=== PATIENT | female | born 1950 | race African-American/Black ===

== ENCOUNTER 2016-05-27 19:19 | Emergency (ER) | payer BC ==
[2016-05-27 20:09] VITALS: BP 142/69
[2016-05-27] MEDS ORDERED: Amoxicillin/Clavulanate TAB* 875 MG PO ONE (20:53)
--- NOTE | 2016-05-27 21:01 | UC ---
Throat Pain/Nasal Orion HPI - HPI Summary HPI Summary: ST FEVER BODYACHES SINCE YESTERDAY. - History of Current Complaint Chief Complaint: UCRespiratory Stated Complaint: SORE THROAT Time Seen by Provider: 05/27/16 20:15 Hx Obtained From: Patient Onset/Duration: Gradual Onset, Lasting Days, Still Present Severity: Moderate Cough: Nonproductive Associated Signs & Symptoms: Positive: Dysphagia, Hoarseness, Fever - Epiglottits Risk Factors Epiglottis Risk Factors: Negative - Allergies/Home Medications Allergies/Adverse Reactions: Allergies Allergy/AdvReac Type Severity Reaction Status Date / Time No Known Allergies Allergy Verified 05/27/16 20:09 PMH/Surg Hx/FS Hx/Imm Hx Previously Healthy: Yes Endocrine History Of: Denies: Thyroid Disease, Hyperthyroidism, Hypothyroidism Cardiovascular History Of: Reports: Hypertension Respiratory History Of: Denies: Asthma Neurological History Of: Denies: TIA, Seizures Psychological History Of: Denies: Anxiety - Surgical History Surgical History: Yes Surgery Procedure, Year, and Place: Spinal fusion, rotator cuff repair, bilateral foot bunionectomy, choley, R TKR, Hyster, Lap band - Family History Known Family History: Positive: None Negative: Respiratory Disease - Social History Occupation: Employed Full-time Lives: With Family Alcohol Use: Rare Substance Use Type: None Smoking Status (MU): Never Smoked Tobacco - Immunization History Most Recent Influenza Vaccination: fall 2014 Most Recent Tetanus Shot: >10 years Most Recent Pneumonia Vaccination: 2013 Review of Systems Constitutional: Fever, Fatigue Skin: Negative ENT: Sore Throat, Ear Ache Respiratory: Negative Cardiovascular: Negative Gastrointestinal: Negative Genitourinary: Negative Motor: Negative Neurovascular: Negative Musculoskeletal: Negative Neurological: Negative Psychological: Negative All Other Systems Reviewed And Are Negative: Yes Physical Exam Triage Information Reviewed: Yes Appearance: No Pain Distress, Well-Nourished, Ill-Appearing - MILD Vital Signs: Initial Vital Signs Temp 99.7 F 05/27/16 20:05 Pulse 93 05/27/16 20:05 Resp 12 05/27/16 20:05 BP 142/69 05/27/16 20:05 Pulse Ox 100 05/27/16 20:05 Vital Signs Reviewed: Yes Eye Exam: Normal ENT: Positive: Pharyngeal erythema, TMs normal, TM bulging Dental Exam: Normal Neck exam: Normal Neck: Positive: Supple, Nontender Respiratory Exam: Normal Respiratory: Positive: Chest non-tender, Lungs clear, Normal breath sounds, No respiratory distress, No accessory muscle use Cardiovascular Exam: Normal Cardiovascular: Positive: RRR, No Murmur, Pulses Normal, Brisk Capillary Refill Abdominal Exam: Normal Abdomen Description: Positive: Nontender, No Organomegaly Musculoskeletal Exam: Normal Musculoskeletal: Positive: Strength Intact, ROM Intact Neurological Exam: Normal Psychological Exam: Normal Skin Exam: Normal Throat Pain/Nasal Course/Dx - Differential Dx/Diagnosis Differential Diagnosis/HQI/PQRI: Pharyngitis, Sinusitis, Tonsillitis, URI Provider Diagnoses: STREP TONSILLITIS Discharge - Discharge Plan Condition: Stable Disposition: HOME Prescriptions: Amoxicillin/Clavulanate TAB* [Augmentin TAB 875*] 875 mg PO BID #20 tab Patient Education Materials: Strep Throat (ED) Referrals: Robert Shah MD [Primary Care Provider] -
== END 2016-05-27 21:10 | disposition home or self-care (01) ==
LOC: UCEAST 19:19
DX: J03.00 Acute streptococcal tonsillitis, unspecified (principal)
CPT/HCPCS: 87502; 87651; 99212; A9270-GY; G0463

== ENCOUNTER 2017-12-09 09:51 | Day surgery (SDC) | payer BC ==
--- NOTE | 2017-11-23 17:00 | HP ---
PREOPERATIVE HISTORY AND PHYSICAL: DATE OF ADMISSION/SURGERY: 12/09/17 DATE OF OFFICE VISIT: 11/16/17 ATTENDING SURGEON: Cresencio Hines MD * (DICTATED BY KIMI ALDANA) PROCEDURE: Right shoulder arthroscopic rotator cuff repair, decompression, excision of distal clavicle, evaluation and treatment of biceps and possible manipulation. CHIEF COMPLAINT: Right shoulder pain. 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 She presents for followup of her right shoulder pain, diagnosed as a high-grade partial-thickness undersurface tear of the supraspinatus, rotator cuff tendon. As a review, the patient developed pain in January of 2017 over 8 months ago without a specific trigger. She has nighttime pain, pain with activities including work. She failed conservative measures to include cortisone injection, Advil, and physical therapy and is therefore agreed to undergo a right shoulder arthroscopic rotator cuff repair, decompression, excision of distal clavicle and evaluation and treatment of biceps with possible manipulation with Dr. Hines on 12/09/17. PAST MEDICAL HISTORY: 1. Hypertension. 2. Osteoarthritis. 3. High cholesterol. PAST SURGICAL HISTORY: Right total knee replacement, spinal fusion, left rotator cuff repair in 2007, hysterectomy, left knee medial meniscus repair and bilateral bunion surgery with cholecystectomy. The patient denies prior complications with anesthesia. MEDICATIONS: 1. Naproxen 500 mg 1 by mouth twice a day as needed. 2. Lipitor 20 mg 1 by mouth every day. 3. Hydrochlorothiazide 25 mg 1 by mouth every morning. 4. Enalapril 20 mg 2 tabs every day. 5. Aspirin 81 mg 1 by mouth every day. 6. Multivitamin 1 by mouth every day. ALLERGIES: No known drug allergies. FAMILY HISTORY: Positive for her father with a OR, sister with rheumatic fever. Denies family history of DVT or PE. SOCIAL HISTORY: She lives alone. She works at the [employer]. She denies tobacco use. She drinks about 1 alcoholic beverage per month. She reports occasional exercise. She is right hand dominant. She denies illegal drug use. REVIEW OF SYSTEMS: A 14-point review of systems was reviewed with the patient. Positive for current complaint, otherwise negative. Denies chest pain, shortness of breath, fever, chills, history of bleeding disorder, history of DVT or PE, history of MRSA, history of hep C or HIV. PHYSICAL EXAMINATION VITAL SIGNS: Height 68, weight 260, blood pressure 158/80, respiratory rate 18 , temperature 96.6, BMI 39.5. HEENT: Normocephalic, atraumatic. PERRLA. Throat clear. NECK: Supple. PULMONARY: Lungs are clear to auscultation bilaterally. No wheezing, rhonchi, or rales. CARDIO: Regular rate and rhythm. S1, S2. No murmurs, gallops, or rubs. No edema. ABDOMEN: Positive bowel sounds. Soft, nontender. MUSCULOSKELETAL: Right shoulder skin is intact with no soft tissue swelling or bruising. Passive forward flexion to 120, external rotation to 70, internal rotation to 60. Pain and weakness to supraspinatus testing. Posterior pain with Speed and [place]. Tenderness to palpation over the AC joint in the proximal biceps tendon, +2 radial pulses. Sensation intact to light touch distally. NEURO: Alert and oriented x3. Cranial nerves grossly intact. Sensation intact to light touch distally. DIAGNOSTIC STUDIES: MRI of the right shoulder from 04/17/17 revealed a high- grade partial-thickness tear of the undersurface of the supraspinatus tendon and there is some tendinosis to the rotator cuff and calcification above the supraspinatus tendon. IMPRESSION: 1. Right shoulder high-grade partial-thickness undersurface tear of the supraspinatus and rotator cuff tendon. 2. Acromioclavicular joint arthritis. 3. Biceps tendinitis. PLAN: The patient is scheduled to undergo right shoulder arthroscopic rotator cuff repair, decompression, excision of distal clavicle and evaluation and treatment of biceps with possible manipulation with Dr. Hines on 12/09/17. Percocet will be used for postop pain management and then the patient will follow up 10 to 14 days postop for followup and suture removal. In regards to the biceps, the patient would prefer a biceps release. KIMI ALDANA [id number]/[facility] #: [id number] [facility]
[~2017-12-09 09:51] MED LIST: Buffered Lidocaine 0.9% SYRIN* 5 ML/SYR SYRINGE INTRADERM ONE; Lidocaine 2% PF * 5 ML VIAL ONE; Midazolam* 1 MG/ML 2 ML VIAL (2 MG) ONE; Propofol* 10 MG/ML 20 ML BTL IV PUSH ONE; Propofol* 500 MG/50 ML BTL ONE; ROPIVACAINE 5 MG/ML 30 ML BTL (0.5%) ONE; Rocuronium* 10 MG/ML VIAL ONE; fentaNYL* 50 MCG/ML 2 ML VIAL (100 MCG VIAL) ONE
[2017-12-09] MEDS ORDERED: ceFAZolin 2 GM PREMIX in ORs 2 GM/50 ML BAG IVPB ONE (09:53)
[2017-12-09] MEDS ORDERED: EPINEPHRINE 1 MG/ML 1 ML VIAL ONE (11:25)
[2017-12-09] MEDS ORDERED: Dexamethasone IV* 4 MG/ML 1 ML (4 MG) ONE (11:49)
[2017-12-09] MEDS ORDERED: ceFAZolin 1 GM VIAL(*) ONE (12:03)
[2017-12-09] MEDS ORDERED: Phenylephrine INJ* 10 MG/ML 1 ML VIAL (10 MG) ONE (12:07)
[2017-12-09] MEDS ORDERED: Naloxone* 0.4 MG/ML 1 ML VIAL IV PRN (12:44)
[2017-12-09] MEDS ORDERED: Acetaminophen TAB* 325 MG PO PRN (12:44)
[2017-12-09] MEDS ORDERED: Metoclopramide IV* 5 MG/ML 2 ML VIAL IV PRN (12:44)
[2017-12-09] MEDS ORDERED: HYDROmorphone INJ1* 1 MG/ML SYRINGE IV PRN (12:44)
[2017-12-09] MEDS ORDERED: Bupivacaine 0.25% W/EPI* 10 ML SDV ONE (12:55)
[2017-12-09] MEDS ORDERED: Ondansetron INJ* 2 MG/ML VIAL ONE (13:35)
[2017-12-09] MEDS ORDERED: Ketorolac INJ* 30 MG/ML 1 ML VIAL ONE (13:35)
[2017-12-09] MEDS ORDERED: Glycopyrrolate IV* 0.2 MG/ML 1 ML VIAL ONE (13:44)
[2017-12-09] MEDS ORDERED: Neostigmine Methylsulfate* 1 MG/ML 10 ML VIAL (1 mg/ml) ONE (13:44)
[2017-12-09] MEDS ORDERED: Acetaminophen TAB* 325 MG ONE (15:05)
[2017-12-09] MEDS ORDERED: HYDROmorphone INJ1* 1 MG/ML SYRINGE ONE (15:05)
[2017-12-09 16:26] VITALS: BP 144/74
--- NOTE | 2017-12-13 22:44 | OP ---
DATE OF OPERATION: 12/09/17 - [facility] DATE OF : 52 SURGEON: Cresencio Hines MD HAND SHAPER: KIMI Diaz. A physician assistant facility manager was required for the length of the procedure for assistance with positioning, retraction, instrumentation, and closure. ANESTHESIOLOGIST: Johana Pleitez DO. ANESTHESIA: General anesthesia, regional interscalene block anesthesia, local anesthesia about the biceps incision site with 10 cc of 0.25% Marcaine with epinephrine. PRE-OP DIAGNOSES: 1. Right shoulder high-grade partial thickness undersurface tear supraspinatus rotator cuff. 2. Right shoulder AC joint arthritis. 3. Right shoulder subacromial impingement. 4. Right shoulder biceps tendinitis or superior labral tear, possible. POST-OP DIAGNOSES: 1. Right shoulder high-grade partial thickness undersurface tear supraspinatus rotator cuff tendon. 2. Right shoulder very low-grade partial thickness tear undersurface subscapularis tendon rotator cuff. 3. Right shoulder AC joint arthritis. 4. Right shoulder subacromial impingement. 5. Right shoulder biceps tendinosis. OPERATIVE PROCEDURE: 1. Right shoulder arthroscopic rotator cuff repair, supraspinatus, double row. 2. Right shoulder debridement, undersurface subscapularis and release of biceps. 3. Right shoulder arthroscopic subacromial decompression. 4. Right shoulder arthroscopic distal clavicle resection. 5. Right shoulder open proximal biceps tenodesis, subpectoral. INDICATIONS FOR PROCEDURE: The patient is a 66-year-old woman, right-hand dominant, who had worked at the [employer] at [employer], who developed pain in January of 2017 without a specific trigger and has had severe day time and night time pain with activities refractory to a full spectrum of a nonoperative management. The patient has delayed her surgery for social reasons so that she could have the proper support network intact for postoperative recovery. Discussed risks and potential complications of procedure including bleeding, infection, nerve or blood vessel injury, shoulder pain, stiffness, osteoarthritis, rotator cuff re-tear. ANTIBIOTICS: 3 g Ancef IV. IV FLUIDS: 1500 cc crystalloid. [id number] TIME: 128 minutes. ARTHROSCOPIC FLUID UTILIZED: 12 bags each with 3 L for a total of 36 L. SPECIMENS: None. IMPLANTS: Mitek Healix 5.5 mm triple loaded suture anchor x1. Mitek Healix knotless 5.5 suture anchor x1. COMPLICATIONS: None. DESCRIPTION OF PROCEDURE: Preoperative consent was signed in preop holding. Operative extremity was marked in preoperative holding. The patient taken back to the operating room after having undergone a regional interscalene block. The patient was placed supine on the operating room table and sedated and intubated, placed in the lateral decubitus position with the right shoulder up. Lateral traction, 15 pounds. Appropriate abduction and forward flexion. Beanbag was hardened, axillary roll, all bony prominences padded. The right shoulder was prepped and draped. Surgical time-out performed. A spinal needle was used to inject 30 cc of normal saline into the posterior aspect of the glenohumeral joint. I then established a standard posterior glenohumeral joint portal. Commenced shoulder arthroscopy, diagnostic. No articular cartilage lesions. I noted some tendinosis at the proximal biceps tendon. I established anterior glenohumeral joint portal under direct visualization. I noted significant tendinosis of the subscapularis and perhaps a very low grade tearing. Using arthroscopic shaver to debride the undersurface of subscapularis. Most of the tendon was intact so no repair was required. The undersurface of the supraspinatus showed a very large tear, what I perceive to be full thickness. I cut the biceps tendon near its origin because of the biceps tendinosis. I then with an instrument moved to the subacromial space. I entered subacromial space from posterior and anterior. I established a lateral subacromial portal under direct visualization. Surprisingly, the tear was not full thickness. There was still a small very thin layer of tissue on the bursal side of the tendon. Probing quickly revealed how thin this was and I identified my nearly full thickness tear in the supraspinatus tendon. I debrided it back to stable tissue. I debrided the footprint appropriately. I then performed a subacromial decompression removing spurs from the anterior aspect of the acromion. I next placed a triple loaded suture anchor in the medial aspect of the footprint. I used a tate and nephew suture passer to place horizontal mattress stitches in the rotator cuff tendon. I passed all sutures and then tied them. For some additional fixation, I decided to place a lateral row anchor with sutures from the medial row. There is the tiniest of dog ears between the posterior most second and third strands of suture. Therefore, I used the extra suture from the lateral row anchor to place 1 additional simple stitch to bring that dog ear down to bone. I liked the stability of my repair to probing and movement. I next proceeded to the distal clavicle where I used an arthroscopic ran to debride 8 mm of the distal end of the distal clavicle. Instruments and fluid were removed from the subacromial space. I then closed the skin incisions with [id number] and 12 stitches using nylon 3-0 suture. Converted the patient to a supine position. I made a standard longitudinal skin incision over the anteromedial upper arm, centered just distal through the inferior aspect of the pectoralis major tendon. Dissected down to the bicipital groove. Retrieved the long head of the biceps tendon. Drilled the anterior cortex of the proximal humerus. Placed 3 stitches with FiberLoop suture in the long head biceps tendon. I placed my button into the bone and then flipped it, tied a stitch. Then placed another stitch and tied that. Removed excess suture and tendon. Irrigation. Closure of the subcutaneous tissue with buried simple stitches using Vicryl 3-0 suture. Closure of the skin with a running stitch layer of Monocryl 4-0 in the subcuticular layer. 4x4s and Tegaderm followed by Xeroform, 4x4s and foam tape to the arthroscopic incisions. I had placed some local anesthetic 10 cc in the subcutaneous tissue about the biceps tendon incision. The patient was placed in a sling with the abduction pillow and cooling unit. DISPOSITION: The patient was to receive Percocet as needed for pain control, aspirin b.i.d. for DVT prophylaxis and Keflex t.i.d. for infection prophylaxis. She will follow up with me in clinic 10 to 14 days postoperatively and she will start physical therapy immediately. [id number]/[facility] #: [id number] [place]
== END 2017-12-09 17:00 | disposition home or self-care (01) ==
LOC: OR 09:51
PROVIDERS: ATTEND Orthopaedic Surgery
DX: S46.011A Strain of muscle(s) and tendon(s) of the rotator cuff of right shoulder, initial encounter (principal); M19.011 Primary osteoarthritis, right shoulder; M75.41 Impingement syndrome of right shoulder; M75.21 Bicipital tendinitis, right shoulder; I10 Essential (primary) hypertension; E78.5 Hyperlipidemia, unspecified; K21.9 Gastro-esophageal reflux disease without esophagitis; G89.18 Other acute postprocedural pain
CPT/HCPCS: A9270-GY; C1776; J0690; J1100; J1170; J1885; J2250; J2405; J2704; J2710; J2795; J3010

== ENCOUNTER 2018-02-09 10:43 | Emergency (ER) | payer BC ==
--- OUTSIDE RECORDS SUMMARY | 2018-02-09 10:49 | XMS REPORT ---
:1950 External Reference #:[id number] Author Organization [employer] Address [address] [facility] [place] [address] Phone [phone] Care Team Providers Name Role Phone Papi Johnson III, MD Primary Care Physician Unavailable Payers Type Date Identification Numbers Payment Provider Subscriber Commercial Policy Number: [id number] [facility] Felicia Villanueva Group Name: [id number] [address] PayID: [id number] Problems Date Description Provider Status Onset: 09/07/2015 Essential hypertension Robert Shah M.D. Active Onset: 09/07/2015 Gastroesophageal reflux disease Robert Shah M.D. Active Onset: 09/07/2015 Hypertensive heart disease without Robert Shah M.D. Active heart failure Onset: 10/05/2015 Cardiovascular stress test abnormal Robert Shah M.D. Active Onset: 12/29/2016 Pure hypercholesterolemia Papi Johnson M.D. Active Family History Date Family Member(s) Problem(s) Comments General No Current Problems Father Coronary Artery Disease (CAD) from [place] 70 yo Mother dementia Social History Type Date Description Comments Marital Status Lives With Family Occupation Retired Occupation Retail Pharmacy Manager Cigarette Use Never Smoked Cigarettes ETOH Use Rarely consumes alcohol Smoking Patient has never smoked Recreational Drug Use Denies Drug Use Daily Caffeine Does Not Consume Caffeine Exercise Type/Frequency Exercises regularly Allergies, Adverse Reactions, Alerts Date Description Reaction Status Severity Comments 09/06/2015 NKDA active Medications Medication Date Status Form Strength Qnty SIG Indications Ordering Provider Enalapril Maleate 01/04 Active Tablets 20mg 180ta 2 by I10 Papi Montero /Zandra Johnson, delores Cervantes day Oxycodone-Acetaminoph 12/09 Active Tablets 5-325mg 30tab 1 tab by Cresencio s mouth F every 4 Donny, hours as MD needed for pain Keflex 12/09 Active Capsules 500mg 21cap 1 cap by s mouth F three Donny, times a MD day Naproxen DR 06/18 Active Tablets 500mg 60tab take [address] s tab by F mouth Donny, twice MD daily as needed Lipitor 09/30 Active Tablets 20mg 90tab Take 1 R94.39 Papi Montero s Tablet Elizabeth, By Mouth M.D. Every Day Hydrochlorothiazide 09/20 Active Tablets 25mg 90tab Take 1 I10 Papi Montero s Tablet Elizabeth, By Mouth M.D. Every Day In The Morning Aspirin Active Tablets 81mg 1 by R94.39 Unknown /0000 DR mouth every day Multi Vitamin Active Tablets 1 by Unknown /0000 mouth every day Aspirin 12/09 Hx Tablets 325mg 28tab 1 tab by s mouth F - twice a Donny, 01/04 day Amlodipine Besylate 09/30 Hx Tablets 10mg 90tab 1 by I11.9 Alvaro Diggs s mouth Nick, - every DO FACC I10 Enalapril 09/07/2015 - Hx Tablets 20mg 60tabs take 2 I10 Papi Montero Maleate 01/04/2018 tablets by Elizabeth, mouth every M.D. day Enalapril - Hx Tablets 20mg 1 by mouth I10 Unknown Maleate 09/07/2015 every day Levaquin - Hx Tablets 750mg 1 by mouth Unknown 08/06/2015 every day for seven days Zofran - Hx Tablets 4mg 1 tab by Unknown 08/06/2015 mouth every 6 hours as needed nausea Probiotic - Hx Capsules 1 by mouth Unknown 12/28/2016 every day Vitamin D High - Hx Capsules 1000Unit 1 by mouth Unknown Potency 12/28/2016 as needed Omeprazole - Hx Capsules DR 20mg 30caps Take 1 Jessi 12/28/2016 Capsule Chisholm, Every Day M.D. Medications Administered in Office Medication Date Status Form Strength Qnty SIG Indications Ordering Provider Depomedrol Administered Injection Cresencio F 40MG 018 MD Omid Hinesomedofelia Administered Injection Fidel Jones, 40MG 017 M.DLiam Technetium TC Administered Injection Anthony Levine 99M 016 Billy Coleman Tetrofosmin, Per Unit Dose Up To 40 Millicuries Technetium TC Administered Injection Debi 99M 016 Nick Armijo M.D. Per Unit Dose Up To 40 Millicuries Immunizations CPT Code Status Date Vaccine Lot # [id number] Given 01/04/2018 Pneumonia Vaccine [id number] Given 01/04/2018 Influenza Virus Vaccine, Quadrivalent, Split, [id number] Preservative Free [id number] Given 12/29/2016 Pneumococcal Conjugate Vaccine 13 Valent For [id number] Intramuscular Use 73516 Given 05/02/2016 Tdap - Tetanus/Diptheria/Acellular Pertussis [id number] Given 05/02/2016 Influenza Virus Vaccine, Quadrivalent, Split [id number] Virus, Im Use Vital Signs Date Vital Result Comment 01/19/2018 Heart Rate 64 /min BP Systolic 144 mmHg BP Diastolic 82 mmHg Respiratory Rate 16 /min Pain Level 7 01/04/2018 Height 68 inches 5'8" Weight 265.00 lb Heart Rate 85 /min BP Systolic 130 mmHg BP Diastolic 82 mmHg O2 % BldC Oximetry 98 % BMI (Body Mass Index) 40.3 kg/m2 12/21/2017 Height 68 inches 5'8" Heart Rate 64 /min Respiratory Rate 18 /min Body Temperature 96.4 F Pain Level 8 11/16/2017 Height 68 inches 5'8" Weight 260.00 lb BP Systolic 158 mmHg BP Diastolic 80 mmHg Respiratory Rate 18 /min Body Temperature 96.6 F Pain Level 5 BMI (Body Mass Index) 39.5 kg/m2 09/21/2017 Height 68 inches 5'8" Weight 260.00 lb Heart Rate 74 /min BP Systolic 160 mmHg BP Diastolic 82 mmHg Respiratory Rate 12 /min Pain Level 7 BMI (Body Mass Index) 39.5 kg/m2 06/18/2017 Height 68 inches 5'8" Weight 250.00 lb Heart Rate 82 /min Respiratory Rate 16 /min Pain Level 7 BMI (Body Mass Index) 38.0 kg/m2 04/20/2017 Height 68 inches 5'8" Weight 250.00 lb Heart Rate 89 /min Respiratory Rate 16 /min Body Temperature 97.1 F Pain Level 8 BMI (Body Mass Index) 38.0 kg/m2 04/14/2017 Height 68 inches 5'8" Weight 250.00 lb BP Systolic 139 mmHg BP Diastolic 81 mmHg Respiratory Rate 16 /min Pain Level 9 BMI (Body Mass Index) 38.0 kg/m2 12/29/2016 Height 68 inches 5'8" Weight 266.25 lb Heart Rate 91 /min BP Systolic Sitting 160 mmHg BP Diastolic Sitting 92 mmHg Body Temperature 97.2 F O2 % BldC Oximetry 98 % BMI (Body Mass Index) 40.5 kg/m2 11/03/2016 Height 68 inches 5'8" Weight 260.00 lb BP Systolic 134 mmHg BP Diastolic 78 mmHg Respiratory Rate 18 /min Body Temperature 97.2 F Pain Level 0 BMI (Body Mass Index) 39.5 kg/m2 09/15/2016 Height 68 inches 5'8" Weight 260.00 lb Heart Rate 76 /min BP Systolic 154 mmHg BP Diastolic 85 mmHg Body Temperature 96.5 F BMI (Body Mass Index) 39.5 kg/m2 05/02/2016 Heart Rate 76 /min BP Systolic Sitting 126 mmHg BP Diastolic Sitting 84 mmHg Respiratory Rate 15 /min Body Temperature 98.4 F O2 % BldC Oximetry 98 % 10/05/2015 Heart Rate 88 /min BP Systolic Sitting 124 mmHg BP Diastolic Sitting 80 mmHg Respiratory Rate 15 /min O2 % BldC Oximetry 98 % 10/01/2015 Height 68 inches 5'8" Weight 256.00 lb with shoes Heart Rate 96 /min BP Systolic Sitting 140 mmHg Ra lg cuff BP Diastolic Sitting 72 mmHg Ra lg cuff BP Systolic Standing 140 mmHg Ra lg cuff BP Diastolic Standing 74 mmHg Ra lg cuff BMI (Body Mass Index) 38.9 kg/m2 Ejection Fraction 55-60% date 08/24/15 ECHO 09/21/2015 Heart Rate 79 /min BP Systolic Sitting 166 mmHg BP Diastolic Sitting 84 mmHg O2 % BldC Oximetry 98 % 09/07/2015 Weight 256.00 lb Heart Rate 110 /min BP Systolic Sitting 140 mmHg BP Diastolic Sitting 77 mmHg Body Temperature 97.8 F O2 % BldC Oximetry 97 % 09/06/2015 Height 68 inches 5'8" Weight 256.00 lb w/o shoes Heart Rate 102 /min reg BP Systolic Sitting 160 mmHg Rue, reg cuff BP Diastolic Sitting 86 mmHg Rue, reg cuff BP Systolic Standing 166 mmHg Rue BP Diastolic Standing 78 mmHg Rue Respiratory Rate 16 /min BMI (Body Mass Index) 38.9 kg/m2 Ejection Fraction 55-60% as of 08/24/15 echo Results Test Date Test Result H/L Range Note CBC Auto Diff 01/14/2017 White Blood Count 4.4 10^3/uL 3.5-10.8 Red Blood Count 3.91 10^6/uL Low 4.0-5.4 Hemoglobin 12.3 g/dL 12.0-16.0 Hematocrit 37 % 35-47 Mean Corpuscular Volume 94 fL 80-97 Mean Corpuscular Hemoglobin 32 pg High 27-31 Mean Corpuscular HGB Conc 34 g/dL 31-36 Red Cell Distribution Width 13 % 10.5-15 Platelet Count 229 10^3/uL 150-450 Mean Platelet Volume 9 um3 7.4-10.4 Abs Neutrophils 1.8 10^3/uL 1.5-7.7 Abs Lymphocytes 2.0 10^3/uL 1.0-4.8 Abs Monocytes 0.5 10^3/uL 0-0.8 Abs Eosinophils 0.1 10^3/uL 0-0.6 Abs Basophils 0 10^3/uL 0-0.2 Abs Nucleated RBC 0 10^3/uL Granulocyte % 40.0 % 38-83 Lymphocyte % 46.7 % 25-47 Monocyte % 10.8 % High 1-9 Eosinophil % 1.4 % 0-6 Basophil % 1.1 % 0-2 Nucleated Red Blood Cells % 0.1 Comp Metabolic Panel 01/14/2017 Sodium 135 mmol/L 133-145 Potassium 3.9 mmol/L 3.5-5.0 Chloride 100 mmol/L Low 101-111 Co2 Carbon Dioxide 30 mmol/L 22-32 Anion Gap 5 mmol/L 2-11 Glucose 88 mg/dL 70-100 Blood Urea Nitrogen 15 mg/dL 6-24 Creatinine 0.87 mg/dL 0.51-0.95 BUN/Creatinine Ratio 17.2 8-20 Calcium 9.5 mg/dL 8.6-10.3 Total Protein 8.1 g/dL 6.4-8.9 Albumin 4.1 g/dL 3.2-5.2 Globulin 4.0 g/dL 2-4 Albumin/Globulin Ratio 1.0 1-3 Total Bilirubin 0.70 mg/dL 0.2-1.0 Alkaline Phosphatase 49 U/L 34-104 Alt 35 U/L 7-52 Ast 39 U/L 13-39 Egfr Non- 65.3 >60 Egfr 84.0 >60 1 Iron & Iron Binding Capacity 01/14/2017 Iron 72 g/dL 50-212 Unsaturated Iron Binding 314 g/dL Total Iron Binding Capacity 386 g/dL 250-450 % Iron Saturation 19 % 15-55 Laboratory test finding 01/14/2017 Vitamin D Total 25(Oh) 54.1 ng/mL High 20-50 Ferritin 49.3 ng/mL 11-307 Vitamin B12 613 pg/mL 180-914 2 Folic Acid (Folate) > 20.00 ng/mL >3.99 Vitamin B1 (Whole Blood) 101 nmol/L 70-180 3 Vitamin E Level 12.7 mg/L 5.5 - 17.0 4 Comp Metabolic Panel 12/29/2016 Sodium 139 mmol/L 133-145 Potassium 4.3 mmol/L 3.5-5.0 Chloride 103 mmol/L 101-111 Co2 Carbon Dioxide 30 mmol/L 22-32 Anion Gap 6 mmol/L 2-11 Glucose 107 mg/dL High 70-100 Blood Urea Nitrogen 14 mg/dL 6-24 Creatinine 0.82 mg/dL 0.51-0.95 BUN/Creatinine Ratio 17.1 8-20 Calcium 9.5 mg/dL 8.6-10.3 Total Protein 8.1 g/dL 6.4-8.9 Albumin 4.0 g/dL 3.2-5.2 Globulin 4.1 g/dL High 2-4 Albumin/Globulin Ratio 1.0 1-3 Total Bilirubin 0.90 mg/dL 0.2-1.0 Alkaline Phosphatase 49 U/L 34-104 Alt 31 U/L 7-52 Ast 31 U/L 13-39 Egfr Non- 70.0 >60 Egfr 90.0 >60 5 Lipid Profile (Trig/Chol/HDL) 12/29/2016 Triglycerides 48 mg/dL 6 Cholesterol 122 mg/dL 7 HDL Cholesterol 60.5 mg/dL 8 LDL Cholesterol 52 mg/dL 9 Laboratory test finding 12/29/2016 TSH (Thyroid Stim 2.06 mcIU/mL 0.34- 5.60 10 Horm) CBC Auto Diff 12/29/2016 White Blood Count 4.1 10^3/uL 3.5-10.8 Red Blood Count 4.19 10^6/uL 4.0-5.4 Hemoglobin 13.1 g/dL 12.0-16.0 Hematocrit 40 % 35-47 Mean Corpuscular Volume 95 fL 80-97 Mean Corpuscular Hemoglobin 31 pg 27-31 Mean Corpuscular HGB Conc 33 g/dL 31-36 Red Cell Distribution Width 14 % 10.5-15 Platelet Count 199 10^3/uL 150-450 Mean Platelet Volume 10 um3 7.4-10.4 Abs Neutrophils 1.4 10^3/uL Low 1.5-7.7 Abs Lymphocytes 1.9 10^3/uL 1.0-4.8 Abs Monocytes 0.7 10^3/uL 0-0.8 Abs Eosinophils 0.1 10^3/uL 0-0.6 Abs Basophils 0 10^3/uL 0-0.2 Abs Nucleated RBC 0 10^3/uL Granulocyte % 34.5 % Low 38-83 Lymphocyte % 46.8 % 25-47 Monocyte % 15.8 % High 1-9 Eosinophil % 1.7 % 0-6 Basophil % 1.2 % 0-2 Nucleated Red Blood Cells % 0 Laboratory test finding 05/27/2016 Rapid Strep Molecular POSITIVE Negative 11 Rapid Influenza A & B 05/27/2016 Influenza A Molecular NEGATIVE Negative 12 Molecular Influenza B Molecular NEGATIVE Negative Basic Metabolic Panel 09/14/2015 Sodium 140 mmol/L 133-145 Potassium 4.6 mmol/L 3.5-5.0 Chloride 106 mmol/L 101-111 Co2 Carbon Dioxide 28 mmol/L 22-32 Anion Gap 6 mmol/L 2-11 Glucose 98 mg/dL 70-100 Blood Urea Nitrogen 9 mg/dL 6-24 Creatinine 0.79 mg/dL 0.51-0.95 BUN/Creatinine Ratio 11.4 8-20 Calcium 9.3 mg/dL 8.6-10.3 Egfr Non- 73.5 >60 Egfr 94.5 >60 13 1 Because ethnic data is not always readily available, this report includes an eGFR for both -Americans and non- Americans. The National Kidney Disease Education Program (NKDEP) does not endorse the use of the MDRD equation for patients that are not between the ages of 18 and 70, are , have extremes of body size, muscle mass, or nutritional status, or are non- or non-. According to the National Kidney Foundation, irrespective of diagnosis, the stage of the disease is based on the level of kidney function: Stage Description GFR(mL/min/1.73 m(2)) 1 Kidney damage with normal or decreased GFR 90 2 Kidney damage with mild decrease in GFR 60-89 3 Moderate decrease in GFR 30-59 4 Severe decrease in GFR 15-29 5 Kidney failure <15 (or dialysis) 2 Normal Range 180 to 914 Indeterminate Range 145 to 180 Deficient Range <145 3 ADDITIONAL INFORMATION This test was developed and its performance characteristics determined by [facility] in a manner consistent with CLIA requirements. This test has not been cleared or approved by the U.S. Food and Drug Administration. Test Performed by: [facility] [place] [address] 4 ADDITIONAL INFORMATION This test was developed and its performance characteristics determined by [facility] in a manner consistent with CLIA requirements. This test has not been cleared or approved by the U.S. Food and Drug Administration. Test Performed by: [facility] [place] [address] 5 Because ethnic data is not always readily available, this report includes an eGFR for both -Americans and non- Americans. The National Kidney Disease Education Program (NKDEP) does not endorse the use of the MDRD equation for patients that are not between the ages of 18 and 70, are , have extremes of body size, muscle mass, or nutritional status, or are non- or non-. According to the National Kidney Foundation, irrespective of diagnosis, the stage of the disease is based on the level of kidney function: Stage Description GFR(mL/min/1.73 m(2)) 1 Kidney damage with normal or decreased GFR 90 2 Kidney damage with mild decrease in GFR 60-89 3 Moderate decrease in GFR 30-59 4 Severe decrease in GFR 15-29 5 Kidney failure <15 (or dialysis) 6 Desirable <150 Borderline high 150-199 High 200-499 Very High >500 7 Desirable <200 Borderline high 200-239 High >239 8 Low <40 Desirable: 40-60 High: >60 9 Desirable: <100 mg/dL Near Optimal: 100-129 mg/dL Borderline High: 130-159 mg/dL High: 160-189 mg/dL Very High: >189 mg/dL 10 FASTING 10 HOUR 11 [place] Operator: [id number] KENNY ANDREY 12 [place] Pond Operator: [id number] KENNY ANDREY 13 Because ethnic data is not always readily available, this report includes an eGFR for both -Americans and non- Americans. The National Kidney Disease Education Program (NKDEP) does not endorse the use of the MDRD equation for patients that are not between the ages of 18 and 70, are , have extremes of body size, muscle mass, or nutritional status, or are non- or non-. According to the National Kidney Foundation, irrespective of diagnosis, the stage of the disease is based on the level of kidney function: Stage Description GFR(mL/min/1.73 m(2)) 1 Kidney damage with normal or decreased GFR 90 2 Kidney damage with mild decrease in GFR 60-89 3 Moderate decrease in GFR 30-59 4 Severe decrease in GFR 15-29 5 Kidney failure <15 (or dialysis) Procedures Date CPT Code Description Status 12/09/2017 44619 Arthroscopy Shoulder,W/Rotator Cuff Repair Completed 12/09/2017 67570 Arthroscopy Shoulder,W/Rotator Cuff Repair Completed 12/09/2017 10260 Arthroscopy,Shoulder Decompression Of Subacromial Space Completed W/Acromio 12/09/2017 87413 Arthroscopy,Shoulder Decompression Of Subacromial Space Completed W/Acromio 12/09/2017 32566 Arthroscopy,Shoulder,Distal Claviculectomy Incl Dist Completed Articular SR 12/09/2017 34766 Arthroscopy,Shoulder,Distal Claviculectomy Incl Dist Completed Articular SR 12/09/2017 72421 Tenodesis Biceps Long Tendon Completed 12/09/2017 87732 Tenodesis Biceps Long Tendon Completed 04/20/2017 00207 Inject/Drain Joint/Bursa Major W/O US Completed 03/02/2017 Mammogram Completed 03/02/2017 Bone Mineral Density Test Completed 01/12/2017 42462 EKG, Interpretation Only Completed 09/15/2016 37251 Inject/Drain Joint/Bursa Major W/O US Completed 09/25/2015 40498 Stress Test Completed 09/25/2015 57038 Myocardial Perfusion Imaging Tomographic (Spect) Completed Multiple Studies 09/25/2015 11706 Myocardial Perfusion Imaging Tomographic (Spect) Completed Multiple Studies 09/14/2015 Mammogram Completed 09/11/2015 51739 Echocardiogram, Limited Study Completed 09/06/2015 87655 EKG Tracing & Interpretation Completed 08/24/2015 02300 ECHO Transthorasic Realtime 2D W Doppler & Color Flow Completed Hosp 08/24/2015 57275 EKG, Interpretation Only Completed Encounters Type Date Location Provider CPT E/M Dx Office Visit 09/21/2017 [facility] Cres[facility] Hines, 59289 M75.111 3:00p Of Xavier LOPEZ M75.41 M19.011 M75.31 Office Visit 06/18/2017 8:15a [facility] Cresencio Hines 07038 M75.111 Of Xavier LOPEZ M75.41 M19.011 M75.31 Office Visit 04/20/2017 3:00p [facility] Cresencio Hines 33411 M75.111 Of Xavier LOPEZ M75.31 Office Visit 04/14/2017 9:00a [facility] Cresencio Hines 28702 M25.511 Of Xavier LOPEZ S46.011A M75.41 M19.011 Office Visit 12/29/2016 10:20a [facility] Internal Medicine - Papi Johnson, 39259 I10 Gordo Cervantes E78.00 N95.1 Z12.31 Z23 Office Visit 11/03/2016 1:45p [facility] Fidel Jones M.D. 09179 M17.12 Xavier Z96.651 Office Visit 09/15/2016 9:00a [facility] Fidel Jones M.D. 87129 M17.12 C.M.ALiam Z96.651 Office Visit 05/02/2016 11:20a [facility] Internal Medicine Robert Shah, 48339 R94.39 - [place] Cervantes R59.0 Z23 Office Visit 10/05/2015 8:00a [facility] Internal Medicine - Robert Shah M.D. 27581 I10 [place] R94.39 Office Visit 10/01/2015 1:40p [facility] [place] [address] R94.39 [facility] FACC I10 I11.9 Office Visit 09/21/2015 10:40a [facility] Internal Medicine Robert Shah M.D. 95087 I10 - [place] Office Visit 09/07/2015 3:00p [facility] Internal Medicine Robert Shah M.D. 01301 I11.9 - [place] I10 Z12.31 R00.0 Office Visit 09/06/2015 1:40p [facility] [place] [address] R94.39 [facility] FACC R94.31 I10 I11.9 Office Visit 08/26/2015 2:19p [facility], Robert Shah, 76685 J18.9 Hospitalists Billy A41.9 I10 Office Visit 08/25/2015 2:18p [facility], Reggie Moon, 59753 J18.9 Hospitalists NLiamPLiam A41.9 I10 Office Visit 08/24/2015 2:18p [facility], Shawna Fortune, 88753 J18.9 Hospitalists Billy A41.9 I10 Office Visit 08/24/2015 4:29p [facility] [place] [address] R79.89 [facility] FACC I11.9 Office Visit 08/23/2015 2:17p [facility], [place] [address] J18.9 Hospitalists A41.9 I10 Plan of Care Future Appointment(s):02/17/2018 2:45 pm - Cresencio Hines MD at [facility] C.M.ALiam07/05/2018 1:00 pm - Papi Johnson M.D. at [facility] Internal Medicine - [place]41/16/2018 - Cresencio Hines, MDM19.011 Primary osteoarthritis, right shoulderFollow up:Follow up: 4 veunrX16.111 Incomplete rotatr-cuff tear/ruptr of r shoulder, not xevzbyC99.41 Impingement syndrome of right ttblsnskW65.31 Calcific tendinitis of right shoulder
[2018-02-09 10:51] VITALS: BP 154/94
--- NOTE | 2018-02-09 10:53 | UC ---
Respiratory Complaint HPI - HPI Summary HPI Summary: 67 yo female presents with a sore throat for the past 1.5 weeks with a dry cough that began 2 days ago. She has been taking an OTC cold medicine with no relief. She is able to eat and drink, but does have mild discomfort. Denies fever, chills, SOB, chest pain, rash. - History of Current Complaint Chief Complaint: UCRespiratory Stated Complaint: URI Time Seen by Provider: 02/09/18 10:53 Hx Obtained From: Patient Onset/Duration: Gradual Onset Severity Initially: Moderate Severity Currently: Moderate Pain Intensity: 8 Pain Scale Used: 0-10 Numeric Character: Cough: Nonproductive - Allergies/Home Medications Allergies/Adverse Reactions: Allergies Allergy/AdvReac Type Severity Reaction Status Date / Time No Known Allergies Allergy Verified 02/09/18 10:51 PMH/Surg Hx/FS Hx/Imm Hx Endocrine History: Dyslipidemia Cardiovascular History: Hypertension - Surgical History Surgical History: Yes Surgery Procedure, Year, and Place: [place] rotator cuff repair-LEFT,. bilateral foot bunionectomy,, 2013. lap german, 2003. Right total knee, 2011. Hyster,1988. Lap band 2011 - Family History Known Family History: Positive: None Negative: Respiratory Disease - Social History Occupation: Retired Lives: With Family Alcohol Use: Rare Alcohol Amount: holidays Substance Use Type: None Smoking Status (MU): Never Smoked Tobacco - Immunization History Most Recent Influenza Vaccination: fall 2014 Most Recent Tetanus Shot: >10 years Most Recent Pneumonia Vaccination: 2013 Review of Systems Constitutional: Negative Skin: Negative Eyes: Negative ENT: Sore Throat Respiratory: Cough Cardiovascular: Negative Gastrointestinal: Negative Neurovascular: Negative Neurological: Negative Psychological: Negative All Other Systems Reviewed And Are Negative: Yes Physical Exam - Summary Physical Exam Summary: GENERAL: NAD. WDWN. No pain distress. SKIN: No rashes, sores, lesions, or open wounds. HEENT: Head: AT/NC Eyes: Conjunctiva clear without inflammation or discharge. Ears: Hearing grossly normal. TMs intact, no bulging, erythema, or edema. Nose: Nasal mucosa pink and moist. NTTP maxillary and frontal sinus. Throat: Posterior oropharynx mild erythema and 2+ tonsillar enlargement. No exudates. Uvula midline. No hoarse voice or muffled voice. NECK: Supple. Mild tonsillar LAD TTP L>R CHEST: CTAB. No r/r/w. No accessory muscle use. Breathing comfortably and in no distress. CV: RRR. Without m/r/g. Pulses intact. Cap refill <2seconds NEURO: Alert. PSYCH: Age appropriate behavior. Triage Information Reviewed: Yes Vital Signs: Initial Vital Signs Temp 98 F 02/09/18 10:49 Pulse 74 02/09/18 10:49 Resp 16 02/09/18 10:49 BP 154/94 02/09/18 10:49 Pulse Ox 99 02/09/18 10:49 Vital Signs Reviewed: Yes Diagnostic Evaluation - Laboratory O2 Sat by Pulse Oximetry: 99 Respiratory Course/Dx - Course Course Of Treatment: Pharyngitis - Differential Dx/Diagnosis Provider Diagnoses: Pharyngitis Discharge - Sign-Out/Discharge Documenting (check all that apply): Patient Departure All imaging exams completed and their final reports reviewed: No Studies - Discharge Plan Condition: Stable Disposition: HOME Prescriptions: Amoxicillin PO (*) [Amoxicillin 875 MG (*)] 875 mg PO BID #14 tab Patient Education Materials: Pharyngitis (ED) Referrals: Papi Johnson MD [Primary Care Provider] - Additional Instructions: If you develop a fever, shortness of breath, chest pain, new or worsening symptoms - please call your PCP or go to the ED. Your blood pressure was high at todays visit. Please see your primary provider within 4 weeks for recheck and re-evaluation. - Billing Disposition and Condition Condition: STABLE Disposition: Home
== END 2018-02-09 11:11 | disposition home or self-care (01) ==
LOC: UCEAST 10:43
DX: J02.9 Acute pharyngitis, unspecified (principal); I10 Essential (primary) hypertension
CPT/HCPCS: 99212; G0463

== ENCOUNTER 2018-05-15 18:59 | Emergency (ER) | payer BC ==
--- NOTE | 2018-05-15 19:35 | UC ---
Respiratory Complaint HPI - HPI Summary HPI Summary: PATIENT HAD A URI ABOUT ONE WEEK AGO. SYMPTOMS HAVE ALL RESOLVED EXCEPT SHE IS CONTINUING TO COUGH. IS WONDERING IF THERE IS ANYTHING SHE CAN TAKE TO HELP WITH THIS ANNOYING SYMPTOM. - History of Current Complaint Chief Complaint: UCRespiratory Stated Complaint: COUGH Time Seen by Provider: 05/15/18 19:27 Hx Obtained From: Patient Hx Last Menstrual Period: hysterectomy Onset/Duration: Gradual Onset, Lasting Weeks, Still Present Timing: Constant Severity Initially: Mild Severity Currently: Mild Pain Intensity: 0 Pain Scale Used: 0-10 Numeric Character: Cough: Nonproductive Aggravating Factors: Nothing Alleviating Factors: Nothing Associated Signs And Symptoms: Positive: URI. Negative: Dyspnea, Fever, Chills - Allergies/Home Medications Allergies/Adverse Reactions: Allergies Allergy/AdvReac Type Severity Reaction Status Date / Time No Known Allergies Allergy Verified 02/09/18 10:51 PMH/Surg Hx/FS Hx/Imm Hx Cardiovascular History: Hypertension - Surgical History Surgical History: Yes Surgery Procedure, Year, and Place: [place],2006, [place]. rotator cuff repair-LEFT,. bilateral foot bunionectomy,, 2013. lap [place], 2003. Right total knee, 2011. Hyster,1988. Lap band 2011. Rotator cuff repair in December - Family History Known Family History: Positive: None Negative: Respiratory Disease - Social History Alcohol Use: Rare Alcohol Amount: holidays Substance Use Type: None Smoking Status (MU): Never Smoked Tobacco - Immunization History Most Recent Influenza Vaccination: fall 2014 Most Recent Tetanus Shot: >10 years Most Recent Pneumonia Vaccination: 2013 Review of Systems All Other Systems Reviewed And Are Negative: Yes Constitutional: Positive: Negative ENT: Positive: Negative Respiratory: Positive: Cough Cardiovascular: Positive: Negative Gastrointestinal: Positive: Negative Physical Exam Triage Information Reviewed: Yes Appearance: Well-Appearing, No Pain Distress, Well-Nourished Vital Signs: Initial Vital Signs Temp 98.0 F 05/15/18 19:02 Pulse 106 05/15/18 19:02 Resp 16 05/15/18 19:02 BP 172/87 05/15/18 19:02 Pulse Ox 97 05/15/18 19:02 Vital Signs Reviewed: Yes Eyes: Positive: Conjunctiva Clear ENT: Positive: Hearing grossly normal, Pharynx normal, TMs normal Neck: Positive: Supple, Nontender, No Lymphadenopathy Respiratory Exam: Normal Cardiovascular Exam: Normal Abdomen Description: Positive: Soft Musculoskeletal: Positive: No Edema Neurological: Positive: Alert Psychological: Positive: Age Appropriate Behavior Skin: Negative: Rashes UC Diagnostic Evaluation - Laboratory O2 Sat by Pulse Oximetry: 97 Respiratory Course/Dx - Differential Dx/Diagnosis Provider Diagnosis: Post-viral cough syndrome Discharge - Sign-Out/Discharge Documenting (check all that apply): Patient Departure All imaging exams completed and their final reports reviewed: No Studies - Discharge Plan Condition: Stable Disposition: HOME Prescriptions: Albuterol HFA INHALER* [Ventolin HFA Inhaler*] 2 puff INH Q4H PRN #1 mdi PRN Reason: Shortness Of Breath predniSONE TAB* [Deltasone 20 MG TAB*] 40 mg PO DAILY #8 tab Patient Education Materials: Acute Cough (ED) Referrals: Papi Johnson MD [Primary Care Provider] - If Needed Additional Instructions: YOU ARE LIKELY EXPERIENCING A POST VIRAL/POSTINFECTIOUS COUGH. THIS CAN LAST FOR SEVERAL WEEKS. WILL GIVE PREDNISONE AND ALBUTEROL TO HELP WITH AIRWAY INFLAMMATION. HOPEFULLY THIS WILL CALM DOWN YOUR SYMPTOMS. FOLLOW-UP WITH YOUR PCP IF NEEDED. - Billing Disposition and Condition Condition: STABLE Disposition: Home
[2018-05-15] MEDS ORDERED: predniSONE TAB* 20 MG PO ONE (19:40)
[2018-05-15] MEDS ORDERED: Albuterol HFA INHALER* 8 gm MDI INH ONE (19:40)
[2018-05-15 20:00] VITALS: BP 155/85
== END 2018-05-15 20:00 | disposition home or self-care (01) ==
LOC: UCEAST 18:59
DX: R05 Cough (principal); I10 Essential (primary) hypertension
CPT/HCPCS: 99212; A9270-GY; G0463; J7512